=== PATIENT | male | born 1945 | race Caucasian/White ===

== ENCOUNTER 2016-07-22 23:26 | Emergency (ER) | payer MEDICARE ==
[2016-07-22 23:58] LABS: BASOPHIL 0.2 % (0-2); EOSINOPHIL 1.9 % (0-7); HCT 39.8 % (42.0-52.0); HGB 13.9 g/dl (13.2-18.0); LYMPHOCYTE 13.1 % (15-48); MCHC 34.9 g/dL (32.0-36.0); MCV 97.3 fL (78.0-100.0); MONOCYTE 10.5 % (0-12); MPV 8.4 fL (6.0-9.5); NEUTROPHIL 74.3 % (41-80); PLT 194 K/uL (150-400); RBC 4.09 M/uL (4.70-6.00); RDW 12.9 % (11.5-14.0); WBC 8.3 K/uL (4.0-10.5)
[2016-07-23 00:03] LABS: INR 1.05 (0.9-1.2); PROTHROMBIN TIME 13.3 SECONDS (11.7-14.0); PTT 23.9 SECONDS (23.2-31.4)
[2016-07-23 00:12] LABS: CKMB 1.92 ng/mL (0.97-4.94); MYOGLOBIN 61 ng/mL (26-65); TROPONIN T < 0.010 ng/mL
[2016-07-23 00:13] LABS: ALBUMIN 4.5 g/dL (3.4-4.8); BILIRUBIN - TOTAL 0.5 mg/dL (0.1-1.0); CREATININE 1.2 mg/dL (0.7-1.2); GLOBULIN (CALCULATION) 2.3 g/dL (2.2-4.2); MAGNESIUM 1.9 mg/dL (1.40-2.10); POTASSIUM 4.5 mmol/L (3.5-5.1); PRO-BNP 588 pg/mL (0-125); TOTAL PROTEIN 6.8 g/dL (6.4-8.3)
== END 2016-07-23 02:13 | disposition home or self-care (01) ==
LOC: FER 23:26
PROVIDERS: Emergency Medicine
DX: R00.2 Palpitations (principal); R04.0 Epistaxis; R32 Unspecified urinary incontinence; I25.810 Atherosclerosis of coronary artery bypass graft(s) without angina pectoris; I11.9 Hypertensive heart disease without heart failure; E78.5 Hyperlipidemia, unspecified; F32.9 Major depressive disorder, single episode, unspecified; Z87.891 Personal history of nicotine dependence; Z82.49 Family history of ischemic heart disease and other diseases of the circulatory system; Z79.82 Long term (current) use of aspirin; Z79.899 Other long term (current) drug therapy; Z95.1 Presence of aortocoronary bypass graft
CPT/HCPCS: 36415; 71010; 80053; 82550; 82553; 83735; 83874; 83880; 84484; 85025; 85610; 85730; 93005

== ENCOUNTER 2016-08-04 21:07 | Day surgery (SDCO) | payer MEDICARE ==
[~2016-08-04] VITALS: Ht 188 cm; Wt 118.9 kg
[2016-08-04 22:21] LABS: BASOPHIL 0.1 % (0-2); EOSINOPHIL 1.2 % (0-7); HCT 40.1 % (42.0-52.0); LYMPHOCYTE 9.6 % (15-48); MCH 33.9 pg (25.0-31.0); MCHC 34.9 g/dL (32.0-36.0); MCV 97.1 fL (78.0-100.0); MONOCYTE 6.8 % (0-12); NEUTROPHIL 82.3 % (41-80); PLT 276 K/uL (150-400); RBC 4.13 M/uL (4.70-6.00); RDW 13.3 % (11.5-14.0); WBC 15.4 K/uL (4.0-10.5)
[2016-08-04 22:35] LABS: LACTIC ACID 1.4 mmol/L (0.5-2.2)
[2016-08-04 22:37] LABS: ALBUMIN 4.1 g/dL (3.4-4.8); BILIRUBIN - TOTAL 0.5 mg/dL (0.1-1.0); CREATININE 1.9 mg/dL (0.7-1.2); GLOBULIN (CALCULATION) 2.2 g/dL (2.2-4.2); POTASSIUM 4.7 mmol/L (3.5-5.1); TOTAL PROTEIN 6.3 g/dL (6.4-8.3)
[2016-08-05 06:22] LABS: URINE CREATININE 78.5 mg/dL (40-278); URINE TOTAL PROTEIN-RANDOM 5.5 mg/dL
[2016-08-05 06:25] LABS: BASOPHIL 0.1 % (0-2); EOSINOPHIL 1.8 % (0-7); HGB 13.2 g/dl (13.2-18.0); LYMPHOCYTE 14.1 % (15-48); MCH 34.4 pg (25.0-31.0); MCHC 34.7 g/dL (32.0-36.0); MONOCYTE 7.9 % (0-12); MPV 8.1 fL (6.0-9.5); NEUTROPHIL 76.1 % (41-80); PLT 229 K/uL (150-400); RBC 3.84 M/uL (4.70-6.00); RDW 13.3 % (11.5-14.0); WBC 12.4 K/uL (4.0-10.5)
[2016-08-05 06:41] LABS: CREATININE 1.4 mg/dL (0.7-1.2); POTASSIUM 4.6 mmol/L (3.5-5.1)
[2016-08-06 05:11] LABS: BASOPHIL 0.1 % (0-2); EOSINOPHIL 1.8 % (0-7); HCT 36.9 % (42.0-52.0); HGB 12.7 g/dl (13.2-18.0); LYMPHOCYTE 10.3 % (15-48); MCHC 34.4 g/dL (32.0-36.0); MCV 98.9 fL (78.0-100.0); MONOCYTE 9.4 % (0-12); MPV 8.4 fL (6.0-9.5); NEUTROPHIL 78.4 % (41-80); PLT 217 K/uL (150-400); RBC 3.73 M/uL (4.70-6.00); RDW 13.2 % (11.5-14.0); WBC 10.3 K/uL (4.0-10.5)
[2016-08-06 05:23] LABS: CREATININE 1.1 mg/dL (0.7-1.2); POTASSIUM 4.5 mmol/L (3.5-5.1)
== END 2016-08-06 10:14 | disposition home or self-care (01) ==
LOC: FER 21:07 → FTCU 23:00 → FMS 08-05 14:43
PROVIDERS: Emergency Medicine; Internal Medicine; ADMIT Internal Medicine Nephrology
DX: J18.9 Pneumonia, unspecified organism (principal); I10 Essential (primary) hypertension; I25.10 Atherosclerotic heart disease of native coronary artery without angina pectoris; I25.2 Old myocardial infarction; E78.5 Hyperlipidemia, unspecified; N17.9 Acute kidney failure, unspecified; M41.9 Scoliosis, unspecified; F41.1 Generalized anxiety disorder; Z95.1 Presence of aortocoronary bypass graft; Z85.46 Personal history of malignant neoplasm of prostate; Z87.891 Personal history of nicotine dependence; Z90.79 Acquired absence of other genital organ(s); Z90.89 Acquired absence of other organs; Z82.49 Family history of ischemic heart disease and other diseases of the circulatory system; Z79.82 Long term (current) use of aspirin; Z79.1 Long term (current) use of non-steroidal anti-inflammatories (NSAID); Z79.899 Other long term (current) drug therapy; Z98.890 Other specified postprocedural states
CPT/HCPCS: 36415; 36600; 71020; 80048; 80053; 82570; 82803; 83605; 84156; 85025; 87040; 93005; 94010; 94640; 94667; 94668; G0378; J0456; J1956